=== PATIENT | male | born 1930 ===

== ENCOUNTER 2021-05-24 21:20 | Observation (INO) ==
[2021-05-25] MEDS ORDERED: Naloxone 0.4 MG/ML INJ IVP PRN (00:25)
[2021-05-25] MEDS ORDERED: 0.9 % Sodium Chloride 1,000 ML IVC SCH (00:30)
[2021-05-25] MEDS ORDERED: *HR* Dextrose 50 % in Water (Vial) 50 ML VIAL IVP PRN (00:35)
[2021-05-25] MEDS ORDERED: D5% in Water 1,000 ML IVC PRN (00:35)
[2021-05-25] MEDS ORDERED: Dextrose Gel 15 GM/37.5 ML TUBE PO PRN ×2 (00:35)
[2021-05-25 02:20] LABS: Hematocrit 34.4 % (37.5-50.1); Hemoglobin 11.4 g/dL (12.9-16.9); Mean Corpuscular HGB Conc 33.1 g/dL (31.6-35.5); Mean Corpuscular Hemoglobin 29.2 pg (28.0-33.3); Mean Corpuscular Volume 88.2 fL (83.0-100.0); Mean Platelet Volume 8.8 fL (9.4-12.4); Platelet Count 190 K/mcL (140-400); Red Cell Distribution Width 13.2 % (11.5-14.5); White Blood Count 8.9 K/mcL (4.3-11.1)
[2021-05-25 02:37] LABS: Calcium 9.2 mg/dL (8.6-10.3); Potassium 4.2 mEq/L (3.5-5.1)
[2021-05-25 03:19] LABS: Estimated Average Glucose 123 mg/dl; Hemoglobin A1C 5.9 %
[2021-05-25] MEDS: Insulin LISPRO 300 UNITS/3 ML VIAL SUBQ SCH ×3 (06:00→17:19)
[2021-05-25] MEDS ORDERED: Lidocaine -MPF 2% 2 ML VIAL ONE (12:08)
[2021-05-25] MEDS ORDERED: *HR* Propofol 200 MG/20 ML VIAL IVP ONE (12:08)
[2021-05-25] MEDS ORDERED: 0.9 % Sodium Chloride 500 ML IVC SCH (16:30)
[2021-05-25] MEDS ORDERED: Famotidine 20 MG TABLET PO SCH (21:00)
[2021-05-25] MEDS: Gabapentin 100 MG CAPSULE PO SCH (21:00)
[2021-05-25] MEDS: Artificial Tears SOLN 15 ML BOTTLE BOTH EYES SCH (21:01)
[2021-05-26] MEDS: Insulin LISPRO 300 UNITS/3 ML VIAL SUBQ SCH ×3 (01:00→12:06)
[2021-05-26 06:37] LABS: Hematocrit 37.1 % (37.5-50.1); Hemoglobin 12.4 g/dL (12.9-16.9); Mean Corpuscular HGB Conc 33.4 g/dL (31.6-35.5); Mean Corpuscular Hemoglobin 29.4 pg (28.0-33.3); Mean Corpuscular Volume 87.9 fL (83.0-100.0); Platelet Count 205 K/mcL (140-400); Red Blood Count 4.22 M/mcL (4.19-5.50); Red Cell Distribution Width 13.2 % (11.5-14.5); White Blood Count 7.8 K/mcL (4.3-11.1)
[2021-05-26 06:57] LABS: Calcium 9.6 mg/dL (8.6-10.3)
[2021-05-26 07:03] VITALS: TEMP 97.8; O2SAT 97
[2021-05-26] MEDS: Gabapentin 100 MG CAPSULE PO SCH (07:43)
[2021-05-26] MEDS: Artificial Tears SOLN 15 ML BOTTLE BOTH EYES SCH (07:43)
[2021-05-26] MEDS ORDERED: Loratadine 10 MG TABLET PO SCH (09:00)
[2021-05-26] MEDS ORDERED: Cholecalciferol (D-3) 1,000 UNIT (25MCG) TABLET PO SCH (09:00)
[2021-05-26] MEDS ORDERED: Aspirin Enteric Coated 81 MG Tablet PO SCH (09:00)
[2021-05-26] MEDS ORDERED: amLODIPine 5 MG TABLET PO SCH (09:00)
[2021-05-26 12:04] VITALS: BP 150/78; PULSE 68
== END 2021-05-26 14:08 | disposition home or self-care (01) ==
LOC: EMEROOARM 21:20 → 3BNU 21:20 → SUATTDRO 05-25 00:42 → 3BNU 05-25 01:14
PROVIDERS: ADMIT Internal Medicine; ATTEND Nurse Practitioner
PROC: ENDOEBX (2021-05-25 09:15)

== ENCOUNTER 2021-07-07 17:25 | Observation (INO) ==
[2021-07-07 18:29] LABS: Basophils # 0.1 K/mcL (0.0-0.2); Basophils % 1.1 %; Eosinophils # 0.7 K/mcL (0.0-0.6); Eosinophils % 11.5 %; Hematocrit 34.9 % (37.5-50.1); Hemoglobin 11.7 g/dL (12.9-16.9); Immature Granulocytes % 0.3 % (0-4); Lymphocytes # 1.7 K/mcL (0.6-4.6); Mean Corpuscular HGB Conc 33.5 g/dL (31.6-35.5); Mean Corpuscular Hemoglobin 29.6 pg (28.0-33.3); Mean Corpuscular Volume 88.4 fL (83.0-100.0); Mean Platelet Volume 8.9 fL (9.4-12.4); Monocytes # 0.7 K/mcL (0.0-1.3); Monocytes % 10.7 %; Platelet Count 230 K/mcL (140-400); Red Blood Count 3.95 M/mcL (4.19-5.50); Segmented Neutrophils % 49.4 %; White Blood Count 6.1 K/mcL (4.3-11.1)
[2021-07-07 18:33] LABS: Bilirubin,Urine Negative (Negative); Blood,Urine Negative (Negative); Clarity,Urine Clear (Clear); Color,Urine Yellow (Yellow); Glucose,Urine (UA) Normal (Normal); Ketones,Urine Negative (Negative); Leukocyte Esterase,Urine Moderate (Negative); Nitrite,Urine Negative (Negative); PH,Urine 6.5 pH Units (5.0-8.0); Protein,Urine 100 mg/dL (Neg-Trace); Urobilinogen,Urine Normal (Normal)
[2021-07-07 18:36] LABS: Bacteria,Urine Few per hpf (None-Few); Hyaline Casts,Urine None Seen per lpf (None Seen); RBC,Urine 0-3 per hpf (0-3); Squamous Epithelial Cell,Urine Few per hpf (None-Few)
[2021-07-07 18:58] LABS: Alanine Aminotransferase 12 Units/L (7-52); Albumin 4.1 g/dL (3.5-5.7); Albumin/Globulin Ratio 1.6 (1.1-2.2); Alkaline Phosphatase 72 Units/L (34-104); Aspartate Amino Transferase 14 Units/L (13-39); BUN/Creatinine Ratio 22 (6-26); Bilirubin,Total 0.3 mg/dL (0.3-1.0); Blood Urea Nitrogen 45 mg/dL (8-23); Calcium 9.2 mg/dL (8.6-10.3); Carbon Dioxide 26 mEq/L (23-29); Chloride 103 mEq/L (98-107); Globulin 2.5 g/dL (2.4-3.5); Glucose 120 mg/dL (70-105); Osmolality,Calculated 295 (280-300); Potassium 4.2 mEq/L (3.5-5.1); Sodium 136 mEq/L (136-145); Total Protein 6.6 g/dL (6.4-8.9); Troponin I < 0.03 ng/mL (< 0.04); eGFR For African Americans 37 (> 60); eGFR For Non-African Americans 30 (> 60)
[2021-07-07 20:13] LABS: Influenza A PCR Negative (Negative); Influenza B PCR Negative (Negative); Resp. Syncytial Virus PCR Negative (Negative)
[2021-07-07 20:17] LABS: SARS-CoV-2 by PCR (In House) Negative (Negative)
[2021-07-07] MEDS ORDERED: Perflutren Lipid Microsphere 1.3 ML in 0.9 % Sodium Chloride 8.7 ML IVP PRN (21:41)
[2021-07-07] MEDS ORDERED: Naloxone 0.4 MG/ML INJ IVP PRN (21:56)
[2021-07-07] MEDS ORDERED: Acetaminophen 325 MG TABLET PO PRN (22:03)
[2021-07-07] MEDS ORDERED: Ondansetron 4 MG/2 ML VIAL IVP PRN (22:03)
[2021-07-07] MEDS ORDERED: Melatonin 3 MG TABLET PO PRN (22:03)
[2021-07-07] MEDS: Aspirin Enteric Coated 325 MG Tablet PO SCH (22:40)
[2021-07-08 01:37] LABS: Hematocrit 35.5 % (37.5-50.1); Hemoglobin 11.9 g/dL (12.9-16.9); Mean Corpuscular HGB Conc 33.5 g/dL (31.6-35.5); Mean Corpuscular Hemoglobin 29.4 pg (28.0-33.3); Mean Corpuscular Volume 87.7 fL (83.0-100.0); Platelet Count 246 K/mcL (140-400); Red Blood Count 4.05 M/mcL (4.19-5.50); Red Cell Distribution Width 12.8 % (11.5-14.5); White Blood Count 6.8 K/mcL (4.3-11.1)
[2021-07-08 01:44] LABS: INR 1.1
[2021-07-08 01:45] LABS: Activated Partial Thrombo Time 29.9 Seconds (26.0-36.0)
[2021-07-08 02:02] LABS: Chol/HDL Ratio 5.2 (0-4.9); Estimated Average Glucose 123 mg/dl; Hemoglobin A1C 5.9 %; Potassium 3.8 mEq/L (3.5-5.1)
[2021-07-08 02:17] LABS: Thyroid Stimulating Hormone 3.925 mcIU/mL (0.340-5.600)
[2021-07-08] MEDS: cefTRIAXone 1,000 MG in 0.9 % Sodium Chloride Mini Bag 100 ML IVPB SCH ×2 (02:33→12:09)
[2021-07-08 02:42] LABS: Folate > 22.3 ng/mL (3.0-16.0); Vitamin B12 450 pg/mL (250-1100)
[2021-07-08] MEDS: Aspirin Enteric Coated 325 MG Tablet PO SCH (08:54)
[2021-07-08] MEDS: Aspirin Enteric Coated 81 MG Tablet PO SCH (08:54)
[2021-07-08] MEDS: Gabapentin 100 MG CAPSULE PO SCH (20:10)
[2021-07-08] MEDS: Artificial Tears SOLN 15 ML BOTTLE BOTH EYES SCH (20:11)
[2021-07-09 03:51] VITALS: O2SAT 98
[2021-07-09 06:04] LABS: Hemoglobin 12.2 g/dL (12.9-16.9); Mean Corpuscular HGB Conc 34.9 g/dL (31.6-35.5); Mean Corpuscular Hemoglobin 30.3 pg (28.0-33.3); Mean Corpuscular Volume 87.1 fL (83.0-100.0); Platelet Count 243 K/mcL (140-400); Red Blood Count 4.02 M/mcL (4.19-5.50); Red Cell Distribution Width 12.9 % (11.5-14.5); White Blood Count 8.5 K/mcL (4.3-11.1)
[2021-07-09 06:21] LABS: Calcium 9.3 mg/dL (8.6-10.3); Potassium 4.1 mEq/L (3.5-5.1)
[2021-07-09 06:35] VITALS: BP 146/62; PULSE 74; TEMP 97.5
[2021-07-09] MEDS ORDERED: lisinopriL 5 MG TABLET PO SCH (09:00)
[2021-07-09] MEDS ORDERED: Cholecalciferol (D-3) 1,000 UNIT (25MCG) TABLET PO SCH (09:00)
[2021-07-09] MEDS ORDERED: Furosemide 40 MG TABLET PO SCH (09:00)
[2021-07-09] MEDS ORDERED: Loratadine 10 MG TABLET PO SCH (09:00)
[2021-07-09] MEDS ORDERED: cefTRIAXone 1,000 MG in 0.9 % Sodium Chloride Mini Bag 100 ML IVPB SCH (09:00)
[2021-07-09] MEDS ORDERED: amLODIPine 5 MG TABLET PO SCH (09:00)
[2021-07-09] MEDS: Aspirin Enteric Coated 81 MG Tablet PO SCH (09:24)
[2021-07-09] MEDS: Gabapentin 100 MG CAPSULE PO SCH (09:24)
[2021-07-09] MEDS: Artificial Tears SOLN 15 ML BOTTLE BOTH EYES SCH (09:34)
[2021-07-09] MEDS ORDERED: FLU Vac QV 21-22 (6Month+)/PF 0.5 ML SYRINGE IM ONE (14:29)
== END 2021-07-09 17:08 | disposition home or self-care (01) ==
LOC: EMEROOARM 17:25 → 3ANU 17:25 → SUATTDRO 20:01 → 3ANU 20:52
PROVIDERS: ADMIT Internal Medicine; ATTEND Nurse Practitioner